=== PATIENT | male | born 2000 | race Hispanic/Latino ===

== ENCOUNTER 2025-07-04 06:12 | Day surgery (SDC) | payer OTHER, SELFPAY ==
[2025-07-04] VITALS (7 sets, daily range): BP systolic 106–164; BP diastolic 64–91; BMI 29.9
[2025-07-04] MEDS: TYLENOL 1000 MG PO (08:38)
[2025-07-04] MEDS: NORMOSOL-R/PLASMALYTE-A 1000 IV (09:02)
[2025-07-04] MEDS: DILAUDID 0.25 MG IV (12:18)
--- NOTE | 2025-07-04 12:27 | W.IMMPOSTOP ---
Surgical Immed Post Op Note
-
Primary Surgeon: Jonny Guillen MD
Assisting Surgeon:
Pre-op Diagnosis: left knee medial meniscus bucket handle tear
Post-op Diagnosis: left knee medial meniscus bucket handle tear
Procedure Performed: arthroscopic left knee medial meniscus repair
Anesthesia Type: general
Specimen / Cultures: none
Estimated Blood Loss: 5mL
Complications: none apparent
Operative Findings: intact cartilage surfaces and ACL, bucket handle medial meniscus tear
Implants: Ar[employer]rex Fiber[employer] x4
Tourniquet time: 59 minutes at 250 mmHg
Operative dictation #: [id number]
[2025-07-04] MEDS: ROXICODONE 5 MG PO (13:34)
== END 2025-07-04 13:45 | disposition home or self-care (01) ==
LOC: SDS 06:12
PROVIDERS: ATTENDING PHYSICIAN Student in an Organized Health Care Education/Training Program
DX: S83.212A Bucket-handle tear of medial meniscus, current injury, left knee, initial encounter (principal); X58.XXXA Exposure to other specified factors, initial encounter
CPT/HCPCS: 29882